=== PATIENT | female | born 1980 | race Two or more races ===

== ENCOUNTER 2024-08-04 14:46 | Emergency (ER) | payer OTHER, SELFPAY ==
[2024-08-04 14:53] VITALS: BP 125/79
--- NOTE | 2024-08-04 14:58 | ED.GENMED ---
ED Provider Triage
<Thomas Wilson PA-C - Last Filed: 08/04/24 20:41>
-
Patient seen by provider in Triage?: Seen in Triage
Attestation: A medical screening examination has been initiated by a qualified medical provider. Based on the assessment performed at this time, it has been determined that an emergent medical condition may exist and the patient has been informed
that further medical evaluation and possible additional diagnostic testing may be needed.
HPI: 43-year-old female presenting to the emergency department for evaluation of flank pain, recently treated for urinary tract infection at urgent care, on day 4 of Bactrim when she started to have the worsening flank pain. She contacted her
primary care provider and advised to come to the ER for further evaluation. She endorses chills and fevers. No nausea or vomiting. Labs, urine, noncontrast CT of the abdomen and pelvis ordered.
GENERAL: Alert , in no apparent distress
EYE: No visual abnormalities.
NECK: Trachea midline
ENT: No visible abnormalities.
LUNGS: No acute respiratory distress
NEUROLOGICAL: Alert and oriented
SKIN: Skin intact. No visible changes.
MUSCULOSKELETAL: Moving extremities normally
PSYCH: Normal and appropriate interaction.
This is a medical evaluation conducted in person to initiate diagnostic evaluation and provide initial therapeutics. Please see further documentation by the treating clinician.
History of Present Illness
<Thomas Wilson PA-C - Last Filed: 08/04/24 20:41>
General
Chief Complaint: Urinary Symptoms
Time Seen by Provider: 08/04/24 20:18
<Brianna Vasquez NP - Last Filed: 08/04/24 20:35>
General
Source: patient
Exam Limitations: none
Nursing documentation reviewed up to this point in time: agreed with
History of Present Illness
History of Present Illness:
Patient to ED with complaint of low back pain. States she was diagnosed with UTI on Friday. Placed on Bactrim DS bid x 5 days. Has had back pain with UTI symmptoms. Advised by PCP to come to ED. Denies fever/chills
Past History
<Thomas Wilson PA-C - Last Filed: 08/04/24 20:41>
Past History
ED Past Medical History: Psychiatric (Anxiety)
Review of Systems
<Brianna Vasquez NP - Last Filed: 08/04/24 20:35>
Review of Systems
Allergies reviewed?: Yes
All Other Systems: ROS reviewed and negative except as documented in HPI and ROS
Constitutional: Reports no symptoms
EENT: Reports no symptoms
Respiratory: Reports no symptoms
Cardiac: Reports no symptoms
ABD/GI: Reports no symptoms
: Reports no symptoms
Musculoskeletal: Reports back pain (low back pain)
Skin: Reports no symptoms
Neurological: Reports no symptoms
Psychiatric: Reports no symptoms
Phy Exam
<Brianna Vasquez NP - Last Filed: 08/04/24 20:35>
General Physical Exam
General Presentation: well appearing and no apparent distress
General age: appears stated age
General Skin: warm and dry
General Habitus: normal
General Mental: alert
Gastrointestinal Exam
Gastrointestinal Exam: non tender, soft, no organomegaly and non distended
Musculoskeletal Exam
Musculoskeletal Exam: full ROM and neuro vasc intact
Skin Exam
Skin Exam: normal color, warm/dry and no rash
Psychiatric Exam
Psychiatric Exam: normal mood/affect
Course
<Thomas Wilson PA-C - Last Filed: 08/04/24 20:41>
Orders/Labs/Results
Orders:
Orders
08/04/24 14:57
CT Abd/pel Without Iv Or Oral Urgent
Comment:
Reason For Exam: flank pain, recent UTI
Test Result ONCE
08/04/24 15:05
Complete Blood Count/With Diff Urgent
Comprehensive Metabolic Panel Urgent
HCG, Serum Qualitative Screen Urgent
Urinalysis Reflex To Culture Urgent
Date Specimen was Collected: 08/04/24
Time Specimen was Collected: 15:03
Urine Microscopic Reflex Cult Urgent
Abnormal Lab Results
08/04/24
15:05
Abs Immat Gran (auto) 0.2 H 10^3/uL
(0-0.05)
Absolute Monos (auto) 0.7 H 10^3/uL
(0.1-0.6)
Immature Gran % 1.9 H %
(0-0.5)
Lymphocytes % 20.0 L %
(20.5-51.1)
Glucose 150 H mg/dl
(70-99)
Ur Occult Blood Reflex 2+ A
(Negative)
Urine RBC 3-6 A /HPF
(0-2)
Urine Bacteria (Reflex) Few A
(Negative)
08/04/24 15:05
08/04/24 15:05
Vital Signs
Initial and Last Documented VS:
Initial Vital Signs
Temp Pulse Resp BP Pulse Ox
98.1 F 97 16 125/79 98
08/04/24 14:53 08/04/24 14:53 08/04/24 14:53 08/04/24 14:53 08/04/24 14:53
Last Documented Vital Signs
Temp Pulse Resp BP Pulse Ox
98.1 F 90 16 121/77 98
08/04/24 14:53 08/04/24 19:17 08/04/24 20:35 08/04/24 20:35 08/04/24 19:17
<Brianna Vasquez STUDY LEAD - Last Filed: 08/04/24 20:35>
Orders/Labs/Results
Orders:
Orders
08/04/24 14:57
CT Abd/pel Without Iv Or Oral Urgent
Comment:
Reason For Exam: flank pain, recent UTI
Test Result ONCE
08/04/24 15:05
Complete Blood Count/With Diff Urgent
Comprehensive Metabolic Panel Urgent
HCG, Serum Qualitative Screen Urgent
Urinalysis Reflex To Culture Urgent
Date Specimen was Collected: 08/04/24
Time Specimen was Collected: 15:03
Urine Microscopic Reflex Cult Urgent
Abnormal Lab Results
08/04/24
15:05
Abs Immat Gran (auto) 0.2 H 10^3/uL
(0-0.05)
Absolute Monos (auto) 0.7 H 10^3/uL
(0.1-0.6)
Immature Gran % 1.9 H %
(0-0.5)
Lymphocytes % 20.0 L %
(20.5-51.1)
Glucose 150 H mg/dl
(70-99)
Ur Occult Blood Reflex 2+ A
(Negative)
Urine RBC 3-6 A /HPF
(0-2)
Urine Bacteria (Reflex) Few A
(Negative)
08/04/24 15:05
08/04/24 15:05
Vital Signs
Initial and Last Documented VS:
Initial Vital Signs
Temp Pulse Resp BP Pulse Ox
98.1 F 97 16 125/79 98
08/04/24 14:53 08/04/24 14:53 08/04/24 14:53 08/04/24 14:53 08/04/24 14:53
Last Documented Vital Signs
Temp Pulse Resp BP Pulse Ox
98.1 F 90 16 121/77 98
08/04/24 14:53 08/04/24 19:17 08/04/24 20:35 08/04/24 20:35 08/04/24 19:17
<Brianna Vasquez NP - Last Filed: 08/04/24 20:35>
*Radiology
Radiology exam reviewed: radiology read reviewed
*Pulse Oximetry
Patient hypoxic: no
*Critical Care Note
Total Time (30-74mins, 75-104mins- exclusive of procedures): Not Applicable
<Brianna Vasquez NP - Last Filed: 08/04/24 20:35>
Update Note
Update Note:
Patient to ED with complaint of bilateral low back pain x 3 days. Diagnosed with Uti on Friday. Placed on Bactrim DS bid x 5 days. IMprovement in urinary symptoms, continues with low back pain. No flank pain. No CVA tenderness. UA reviewed, no
evidence of uti. CT report reviewed. Tiny nephroliths noted. NO obstructing stones, otherwise normal CT. Will ecommend she finish out course of antibitiotic, follow up with PCP in AM. Given instructions on s/s to return to ED and she is
agreeable to plan.
ED Attending Note
<Thomas Wilson PA-C - Last Filed: 08/04/24 20:41>
-
Portions of this chart may have been created with voice recognition software.� Occasional wrong word or��sound alike� substitutions may have occurred due to the inherent limitations of voice recognition software.
Discharge Plan
Departure
Patient Disposition: Home (Routine Discharge)
Date of Disposition: 08/04/24
Time of Disposition: 20:27
Patient with high blood pressure during this ER visit?: No
Condition: Good
Covid-19: Not Applicable
Discharge Problem:
Low back pain
Instructions: Urinary Tract Infection, Adult (DC), Back Pain
Activity Restrictions/Additional Instructions:
Finish the antibiotic as prescribed. FOllow up with your family doctor in the AM. Return to the emergency department immediately for any changes in/worsening of your symptoms.
Interventions
Interventions:
*Risk Screen - Suicide Last Done: 08/04/24 14:53
*General Assessment Last Done: 08/04/24 14:53
*Neglect/Abuse Screening Last Done: 08/04/24 14:53
ED- Fall Risk Assessment Last Done: 08/04/24 20:30
*ED COVID-19 Vaccine History Last Done: 08/04/24 14:53
*Nursing Disposition Last Done: 08/04/24 20:30
ED-Female Genitourinary Assessment Last Done: 08/04/24 20:30
Discharge Date and Time
Discharge Date/Time: 08/04/24 20:35
Print Language: ALBANIAN
[2024-08-04 15:15] LABS: % Basophils 0.5 % (0-2); % Eosinophils 2.7 % (0-6); % Immature Granulocytes 1.9 % (0-0.5); % Monocytes 7.1 % (1.7-9.3); % Neutrophils 67.8 % (42.2-75.2); Absolute Basophils 0.1 10^3/uL (0-0.2); Absolute Eosinophils 0.3 10^3/uL (0-0.7); Absolute Immature Granulocytes 0.2 10^3/uL (0-0.05); Absolute Lymphocytes 1.9 10^3/uL (1.2-3.4); Absolute Monocytes 0.7 10^3/uL (0.1-0.6); Absolute Neutrophils 6.4 10^3/uL (1.4-6.5); Hematocrit 40.5 % (37.0-47.0); Hemoglobin 13.5 g/dL (12.0-16.0); Mean Corp Hgb Conc. 33.3 g/dL (33.0-37.0); Mean Corpuscular Hgb 29.3 pg (27.0-31.0); Mean Corpuscular Volume 87.9 fL (81.0-99.0); Mean Platelet Volume 9.6 fL (7.4-10.4); Nucleated Red Blood Cells % 0 %; Platelet Count 268 10^3/uL (130-400); Red Blood Cell Count 4.61 10^6/uL (4.20-5.40); Red Cell Dist. Width 13.6 % (11.5-14.5); Urine Albumin Negative (Neg - Trace); Urine Bilirubin Negative (Negative); Urine Character Clear (Clear); Urine Color Yellow; Urine Glucose Negative (Negative); Urine Ketone Negative (Negative); Urine Leukocyte Negative (Negative); Urine Nitrite Negative (Negative); Urine Occult Blood 2+ (Negative); Urine Urobilinogen Negative (Neg - 1+); Urine pH 6.5 (5.0-9.0); White Blood Cell Count 9.4 10^3/uL (4.8-10.8)
[2024-08-04 15:32] LABS: ALT (SGPT) 16 U/L (0-35); AST (SGOT) 21 U/L (14-36); Albumin 4.2 g/dl (3.5-5.0); Alkaline Phosphatase 51 U/L (38-126); Blood Urea Nitrogen 8 mg/dl (7-17); Calcium 8.5 mg/dl (8.4-10.2); Carbon Dioxide 24 mmol/L (22-30); Chloride 104 mmol/L (98-107); Glucose 150 mg/dl (70-99); Potassium 3.9 mmol/L (3.5-5.1); Sodium 137 mmol/L (135-145); Total Bilirubin 0.3 mg/dl (0.2-1.3); eGFR > 60.00
[2024-08-04 15:33] LABS: HCG, Serum Qualitative Screen Negative
[2024-08-04 15:38] LABS: Urine Mucus Few; Urine Squamous Cell 26-30 /LPF (Few); Urine White Cell 0-2 /HPF (0-5)
[2024-08-04 15:39] LABS: Urine Bacteria Few (Negative)
[2024-08-04 17:26] VITALS: BP 118/73
[2024-08-04 19:17] VITALS: BP 112/76
[2024-08-04 20:35] VITALS: BP 121/77
== END 2024-08-04 20:35 | disposition home or self-care (01) ==
LOC: EMR 14:46
PROVIDERS: Physician Assistant Medical; EMERGENCY PHYSICIAN Emergency Medicine; FAMILY PHYSICIAN Internal Medicine
DX: M54.50 Low back pain, unspecified (principal); Z87.440 Personal history of urinary (tract) infections
CPT/HCPCS: 99284; 74176; 80053; 81003; 81015; 84703; 85025